=== PATIENT | female | born 2000 | race Caucasian/White ===

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

== ENCOUNTER 2020-06-13 02:53 | Emergency (ER) | payer SELFPAY ==
[~2020-06-13] VITALS: Ht 172.7 cm; Wt 91.0 kg
[2020-06-13] MEDS ORDERED: NALOXONE HCL 1 MG/ML 2ML VIAL IM ONE (04:00)
[2020-06-13 05:30] VITALS: BP 114/62
[2020-06-13] MEDS ORDERED: NALO4SPR BOTHNSTRLS (05:45)
== END 2020-06-13 06:32 | disposition home or self-care (01) ==
LOC: ER 02:53
DX: T40.411A Poisoning by fentanyl or fentanyl analogs, accidental (unintentional), initial encounter (principal); G92 Toxic encephalopathy; R06.89 Other abnormalities of breathing; F11.288 Opioid dependence with other opioid-induced disorder; Y92.59 Other trade areas as the place of occurrence of the external cause
CPT/HCPCS: 93005; 96372; 99283; J2310

== ENCOUNTER 2020-08-08 17:44 | Emergency (ER) | payer MEDICAID ==
[~2020-08-08] VITALS: Ht 167.6 cm; Wt 100.0 kg
[~2020-08-08 17:44] MED LIST: NALO4SPR BOTHNSTRLS
[2020-08-08 17:45] VITALS: BP 127/76
[2020-08-08 18:34] LABS: CLARITY URINE CLEAR (CLEAR); COLOR URINE YELLOW (YELLOW); KETONES URINE NEGATIVE (NEGATIVE); LEUKOCYTE ESTERASE URINE NEGATIVE (NEGATIVE); NITRITE URINE NEGATIVE (NEGATIVE); OCCULT BLOOD URINE NEGATIVE (NEGATIVE); PROTEIN URINE NEGATIVE (NEGATIVE); SPECIFIC GRAVITY URINE 1.018 (1.005-1.030); UROBILINOGEN URINE 0.2 E.U./dL (0.2-1.0)
[2020-08-08 19:00] LABS: BASOPHILS % 0.4 % (0.0-2.0); EOSINOPHILS % 1.6 % (0.0-5.0); HEMATOCRIT. 38.9 % (36.0-48.0); HEMOGLOBIN. 13.4 g/dL (12.0-16.0); LYMPHOCYTES % 26.9 % (20.0-50.0); MEAN CORPUSCULAR HEMOGLOBIN 29.2 pg (28.0-32.0); MEAN PLATELET VOLUME 8.2 fl (7.4-10.4); MONOCYTES % 8.4 % (2.0-8.0); NEUTROPHILS % 62.7 % (40.0-76.0); PLATELET 235 x1000/uL (130-400); RED BLOOD CELL COUNT 4.58 mill/uL (4.2-5.4)
[2020-08-08 19:05] LABS: CHLORIDE 108 mEq/L (98-107)
[2020-08-08 19:06] LABS: HCG SCREEN NEGATIVE
[2020-08-08] MEDS ORDERED: FUROSEMIDE 20MG TABLET PO ONE (19:30)
== END 2020-08-08 20:43 | disposition left against medical advice (07) ==
LOC: ER 17:44
DX: R60.0 Localized edema (principal); M79.642 Pain in left hand; M79.641 Pain in right hand; F15.10 Other stimulant abuse, uncomplicated; F19.10 Other psychoactive substance abuse, uncomplicated
CPT/HCPCS: 36415; 71045; 80053; 81003; 81025; 83880; 84703; 85025; 99284